=== PATIENT | male | born 1945 | race Caucasian/White ===

== ENCOUNTER 2018-10-12 14:04 | Emergency (ER) | payer MEDICARE, BC ==
[~2018-10-12] VITALS: Ht 177.8 cm; Wt 113.6 kg
[~2018-10-12 14:04] MED LIST: AMLO10TA4 PO; APIX2.5T PO; CELE-193 PO; HYDR12.5 PO; LISI-600 PO; PANT-47 PO; PRAM0.5T3 PO; PRAM3TAB PO; ROSU20TA PO; TEMA30CA5 PO; WALKERFR
[2018-10-12 14:16] VITALS: BP 160/88
== END 2018-10-12 19:19 | disposition left against medical advice (07) ==
LOC: ER 17:17
DX: R07.9 Chest pain, unspecified (principal); Z53.21 Procedure and treatment not carried out due to patient leaving prior to being seen by health care provider
CPT/HCPCS: 71045; 93005

== ENCOUNTER 2019-01-02 05:31 | Inpatient (IN) | payer MEDICARE, BC ==
[2018-12-22 12:23] LABS: BASOPHILS # (AUTO) 0.1 X10'3 (0-0.2); BASOPHILS % (AUTO) 0.6 % (0-1); EOSINOPHILS # (AUTO) 0.2 X10'3 (0-0.9); EOSINOPHILS % (AUTO) 2.4 % (0-6); LYMPHOCYTES % (AUTO) 10.7 % (21-51); MEAN CORPUSCULAR HEMOGLOBIN 32.2 PG (27.0-31.0); MEAN CORPUSCULAR HGB CONC 34.5 g/dL (33.0-36.5); MEAN CORPUSCULAR VOLUME 93.3 FL (78-98); MONOCYTES # (AUTO) 0.7 X10'3 (0-0.9); MONOCYTES % (AUTO) 7.6 % (2-12); NEUTROPHILS % (AUTO) 78.7 % (42-75); PRE OP HEMATOCRIT 45.7 % (42.0-52.0); PRE OP HEMOGLOBIN 15.8 g/dL (14.0-17.9); PRE OP PLATELET COUNT 213 X10'3 (140-440); RED CELL DISTRIBUTION WIDTH 15.3 % (11.5-14.5)
[2018-12-22 12:35] LABS: PRE OP INR 1.1 INR; PRE OP PROTIME 10.8 SECONDS (9.0-12.0)
[2018-12-22 12:41] LABS: ALBUMIN 3.8 G/DL (3.4-5.0); ALBUMIN/GLOBULIN RATIO 1.1 (1.1-1.5); ALKALINE PHOSPHATASE 61 IU/L (46-116); BLOOD UREA NITROGEN 20 MG/DL (7-18); BUN/CREATININE RATIO 22.2 (5.4-32.0); CALCIUM 9.4 MG/DL (8.5-10.1); CHLORIDE 107 MMOL/L (99-107); PRE OP ALT 28 U/L (30-65); PRE OP ANION GAP 8 (8-16); PRE OP AST 18 U/L (10-37); PRE OP BILIRUB, TOTAL 1.3 MG/DL (0.0-1.0); PRE OP GLUCOSE 85 MG/DL (70-104); PRE OP POTASSIUM 3.8 MMOL/L (3.4-5.1); PRE OP SODIUM 143 MMOL/L (135-145); TOTAL CARBON DIOXIDE 27.9 MMOL/L (24-32); TOTAL PROTEIN 7.2 G/DL (6.4-8.2); eGFR 83 ML/MIN
[2018-12-22 12:51] LABS: CLARITY,URINE CLEAR (Clear); COLOR,URINE YELLOW (Yellow); GLUCOSE, URINE NEGATIVE (Neg); KETONES,URINE NEGATIVE (Neg); LEUKOCYTE ESTERASE ,URINE NEGATIVE (Neg); NITRITES, URINE NEGATIVE (Neg); OCCULT BLOOD,URINE NEGATIVE (Neg); PH,URINE 5.5 (4.8-8.0); PROTEIN,URINE NEGATIVE (Neg)
[2018-12-22 12:52] LABS: UA COLLECTION TYPE CLN CATCH MIDSTREAM
[2019-01-02] VITALS (20 sets, daily range): BP systolic 108–142; BP diastolic 60–92
[~2019-01-02] VITALS: Ht 177.8 cm; Wt 113.9 kg
[~2019-01-02 05:31] MED LIST changes: -LISI-600 PO; +LISI10TA4 PO; -PANT-47 PO; -ROSU20TA PO; +ROSU20TA2 PO; -TEMA30CA5 PO; -WALKERFR; +acetaminophen 325mg tablet PO ONE; +cefazolin/dext.iso 2gm/100 ML IV ONE; +celeCOXIB 100mg capsule PO ONE; +famotidine 20mg tablet PO ONE; +gabapentin 300mg capsule PO ONE; +oxyCODONE SR 10mg (sust. release) tab PO ONE; +ringers solution, lacted 1,000 ML IV SCH; +tranexamic acid inj. 1,500 MG in normal saline 100ml IV soln 100 ML IV ONE
[2019-01-02] MEDS ORDERED: LIDOcaine 1% (10mg/ml) 2ml vial ONE (05:54)
[2019-01-02] MEDS ORDERED: ROPIVAcaine 0.5% (5mg/ml) 30ml vial ONE ×2 (06:51→07:11)
[2019-01-02] MEDS ORDERED: bacitracin inj 150,000 UNIT in sodium chloride irrig. sol 3,000 ML IR ONE (07:00)
[2019-01-02] MEDS ORDERED: tetracaine 1% (10mg/ml) pres. free inj. ONE (07:11)
[2019-01-02] MEDS ORDERED: morphine /PF 1mg/ml 10ml inj. ONE (07:14)
[2019-01-02] MEDS ORDERED: fentaNYL/PF 50MCG/1 ML 2ML syringe ONE (07:14)
[2019-01-02] MEDS ORDERED: MIDAZolam 1mg/ml 10ml vial ONE (07:14)
[2019-01-02] MEDS ORDERED: ringers solution, lacted 1,000 ML IV SCH (08:06)
[2019-01-02] MEDS ORDERED: hydrALAZINE 20mg/ml inj. IV PRN (08:10)
[2019-01-02] MEDS ORDERED: morphine 4 MG/ML inj SYRINge IV PRN ×2 (08:10)
[2019-01-02] MEDS ORDERED: ondansetron/PF 4mg/2ml inj IV PRN ×3 (08:10→10:45)
[2019-01-02] MEDS ORDERED: meperidine/PF 25mg/ml syringe IV PRN ×2 (08:10)
[2019-01-02] MEDS ORDERED: enalaprilat dihydrate 2.5mg/2ml vial IV PRN (08:10)
[2019-01-02] MEDS ORDERED: diphenhydrAMINE 50 mg/ml inj IV PRN (08:10)
[2019-01-02] MEDS ORDERED: ceFAZolin 1000mg inj ONE (08:55)
[2019-01-02] MEDS ORDERED: bisacodyl 10mg suppository rectal RC PRN (10:45)
[2019-01-02] MEDS ORDERED: magnesium hydroxide 30ml (MOM) UD suspension PO PRN (10:45)
[2019-01-02] MEDS ORDERED: HYDROmorphone 1 mg/ml syringe IV PRN (10:45)
[2019-01-02] MEDS ORDERED: diphenhydrAMINE 25mg capsule PO PRN ×2 (10:45)
[2019-01-02] MEDS ORDERED: acetaminophen 325mg tablet PO PRN (10:45)
--- NOTE | 2019-01-02 10:45 | NUR ---
Received from OR via bed, accompanied by Anesthesiologist. Report received. Initial physical assessment done and recorded.
--- NOTE | 2019-01-02 12:15 | NUR ---
Discharge criteria met, report to receiving floor. Transferred to room in stable condition.
[2019-01-02] MEDS: pramipexole 1mg tablet PO SCH ×3 (13:00→20:21)
[2019-01-02] MEDS: ceFAZolin 1GM/D5W- ADD-VANTAGE 50 ML IV SCH (17:21)
[2019-01-02] MEDS: gabapentin 300mg capsule PO SCH ×2 (17:21→20:19)
[2019-01-02] MEDS: potassium cl 20mEq in 1/2 NS 1,000 ML IV SCH ×2 (17:21→18:41)
--- NOTE | 2019-01-02 18:09 | NUR ---
report to Harriett MOTTA
--- NOTE | 2019-01-02 18:57 | NUR ---
PT REPORT RECEIVED FROM RODNEY MOTTA.
--- NOTE | 2019-01-02 19:56 | NUR ---
DRESSING REINFORCED, MODERATE BLEEDING. POWDER PACK REPLACED.
[2019-01-02] MEDS: sennosides 8.6mg tablet PO SCH (20:19)
[2019-01-02] MEDS: ascorbic acid 500mg tablet PO SCH (20:19)
[2019-01-03] MEDS: ceFAZolin 1GM/D5W- ADD-VANTAGE 50 ML IV SCH (00:01)
[2019-01-03] MEDS: oxyCODONE/APAP 10/325mg tablet PO PRN ×5 (00:04→19:42)
[2019-01-03 02:00] VITALS: BP 127/86
[2019-01-03] MEDS: potassium cl 20mEq in 1/2 NS 1,000 ML IV SCH ×3 (03:22→18:40)
[2019-01-03] MEDS ORDERED: albuterol 2.5 MG/3 ML nebule NEB PRN (05:50)
[2019-01-03 06:00] VITALS: BP_SYST 120; BP_SYST 128; BP_DIAS 78
--- NOTE | 2019-01-03 06:23 | NUR ---
Patient in room [facility]23. I have received report from ÁNGELA Ceja and had the opportunity to ask questions and assume patient care.
--- NOTE | 2019-01-03 06:27 | NUR ---
PT REPORT GIVEN TO ROSALVA MOTTA.
[2019-01-03 06:39] LABS: INR 1.2 INR
[2019-01-03 06:40] LABS: ANION GAP 7 (8-16); CHLORIDE 104 MMOL/L (99-107); POTASSIUM 4.5 MMOL/L (3.5-5.1); SODIUM 139 MMOL/L (135-145); TOTAL CARBON DIOXIDE 27.8 MMOL/L (24-32)
[2019-01-03] MEDS: atorvastatin 10mg tablet PO SCH (08:10)
[2019-01-03] MEDS: HYDROchlorothiazide 12.5mg capsule PO SCH (08:11)
[2019-01-03] MEDS: pramipexole 1mg tablet PO SCH ×4 (08:14→21:28)
[2019-01-03] MEDS: gabapentin 300mg capsule PO SCH ×3 (08:15→19:38)
[2019-01-03] MEDS: amLODIPine 5mg tablet PO SCH (08:16)
[2019-01-03] MEDS: multivitamins, therapeutics tablet PO SCH (08:18)
[2019-01-03] MEDS: ascorbic acid 500mg tablet PO SCH ×2 (08:19→19:37)
[2019-01-03] MEDS: lisinopril 10 MG tablet PO SCH (08:20)
[2019-01-03 08:52] LABS: BASOPHILS # (AUTO) 0.1 X10'3 (0-0.2); BASOPHILS % (AUTO) 0.8 % (0-1); EOSINOPHILS # (AUTO) 0.1 X10'3 (0-0.9); EOSINOPHILS % (AUTO) 0.9 % (0-6); HEMATOCRIT 41.8 % (42.0-52.0); HEMOGLOBIN 14.6 g/dl (14.0-17.9); LYMPHOCYTES % (AUTO) 12.9 % (21-51); MEAN CORPUSCULAR HEMOGLOBIN 32.7 PG (27.0-31.0); MEAN CORPUSCULAR HGB CONC 34.8 g/dL (33.0-36.5); MEAN PLATELET VOLUME 8.3 FL (7.4-10.4); MONOCYTES # (AUTO) 0.5 X10'3 (0-0.9); MONOCYTES % (AUTO) 6.2 % (2-12); NEUTROPHILS # (AUTO) 6.2 X10'3 (1.8-7.7); NEUTROPHILS % (AUTO) 79.2 % (42-75); PLATELET COUNT 231 X10'3 (140-440); RED BLOOD COUNT 4.45 X10'6 (4.70-6.10); RED CELL DISTRIBUTION WIDTH 14.8 % (11.5-14.5); WHITE BLOOD COUNT 7.9 X10'3 (4.5-11.0)
[2019-01-03 10:00] VITALS: BP 106/60
[2019-01-03] MEDS ORDERED: warfarin 10mg tablet PO ONE (10:00)
--- NOTE | 2019-01-03 11:58 | NUR ---
Assessment was completed at 0800 but time was not changed on physical assessment document to reflect this assessment
--- NOTE | 2019-01-03 12:08 | NUR ---
Problems reprioritized. Patient report given, questions answered & plan of care reviewed with ÁNGELA Ceja.
--- NOTE | 2019-01-03 12:15 | NUR ---
Student documentation:I have reviewed and agree with all interventions, assessments performed and documented by Deborah Morales. Student Medication Administration:For this medication-pass time frame [id number], all medications were reviewed, administered and documented per hospital policy by Deborah Morales.
[2019-01-03] MEDS: lactose-reduced food (Ensure Enlive) - 237ml bottle PO SCH ×2 (13:00→18:00)
--- NOTE | 2019-01-03 13:40 | NUR ---
Joint replacement consult: Pt seen by ARACELI for verbal high protein ed. RD reviewed high protein needs for wound healing, immune strength, high protein foods, and protein supplementation options. RD contact information provided in case of further questions. Pt agrees to ensure enlive VITALY; and dietary notified. Addendum: 01/03/19 at [address] Amended: Links added.
[2019-01-03 16:00] VITALS: BP 116/56
[2019-01-03 18:00] VITALS: BP 103/42
--- NOTE | 2019-01-03 18:37 | NUR ---
PT REPORT RECEIVED FROM RSOALVA MOTTA.
[2019-01-03] MEDS: celeCOXIB 100mg capsule PO SCH (19:37)
[2019-01-03] MEDS: sennosides 8.6mg tablet PO SCH (21:28)
[2019-01-03 22:00] VITALS: BP 148/82
[2019-01-04] MEDS: oxyCODONE/APAP 10/325mg tablet PO PRN ×3 (00:57→09:49)
[2019-01-04] MEDS: potassium cl 20mEq in 1/2 NS 1,000 ML IV SCH (02:41)
--- NOTE | 2019-01-04 04:30 | NUR ---
pt report to joselito rn.
[2019-01-04 06:10] LABS: BASOPHILS % (AUTO) 0.5 % (0-1); EOSINOPHILS # (AUTO) 0.3 X10'3 (0-0.9); EOSINOPHILS % (AUTO) 3.8 % (0-6); HEMATOCRIT 39.9 % (42.0-52.0); HEMOGLOBIN 13.8 g/dl (14.0-17.9); MEAN CORPUSCULAR HEMOGLOBIN 32.4 PG (27.0-31.0); MEAN CORPUSCULAR HGB CONC 34.5 g/dL (33.0-36.5); MEAN PLATELET VOLUME 8.2 FL (7.4-10.4); MONOCYTES # (AUTO) 0.5 X10'3 (0-0.9); MONOCYTES % (AUTO) 6.8 % (2-12); NEUTROPHILS # (AUTO) 5.6 X10'3 (1.8-7.7); NEUTROPHILS % (AUTO) 75.9 % (42-75); PLATELET COUNT 199 X10'3 (140-440); RED BLOOD COUNT 4.24 X10'6 (4.70-6.10); RED CELL DISTRIBUTION WIDTH 15.4 % (11.5-14.5); WHITE BLOOD COUNT 7.4 X10'3 (4.5-11.0)
[2019-01-04 06:22] LABS: INR 1.3 INR
--- NOTE | 2019-01-04 06:45 | NUR ---
Received report from Reshma RN
[2019-01-04 07:20] VITALS: BP 143/82
[2019-01-04] MEDS: lactose-reduced food (Ensure Enlive) - 237ml bottle PO SCH (08:00)
[2019-01-04] MEDS: ascorbic acid 500mg tablet PO SCH (08:09)
[2019-01-04] MEDS: atorvastatin 10mg tablet PO SCH (08:09)
[2019-01-04] MEDS: celeCOXIB 100mg capsule PO SCH (08:09)
[2019-01-04 08:10] VITALS: BP_SYST 127
[2019-01-04] MEDS: lisinopril 10 MG tablet PO SCH (08:10)
[2019-01-04] MEDS: multivitamins, therapeutics tablet PO SCH (08:11)
[2019-01-04] MEDS: gabapentin 300mg capsule PO SCH (08:11)
[2019-01-04] MEDS: HYDROchlorothiazide 12.5mg capsule PO SCH (08:11)
[2019-01-04] MEDS: amLODIPine 5mg tablet PO SCH (08:12)
[2019-01-04] MEDS: pramipexole 1mg tablet PO SCH (08:13)
[2019-01-04] MEDS ORDERED: warfarin 10mg tablet PO ONE (10:00)
--- NOTE | 2019-01-04 10:08 | NUR ---
Patient was discharged IV and tele was removed from patient. Patient was alert and oriented at time of discharge. patient left with .
[2019-01-04] MEDS ORDERED: acetaminophen 325mg tablet PO PRN (10:45)
== END 2019-01-04 10:02 | disposition home health service (06) | DRG 467 ==
LOC: PAS IN 05:31 → EDSTATUS 07:30 → ORTHO 4S 12:06
PROVIDERS: ADMIT Specialist; ATTEND Specialist
PROC: 0SRC0J9 Replacement of Right Knee Joint with Synthetic Substitute, Cemented, Open Approach (ICD-10-PCS; 2019-01-02)
PROC: 3E0T3BZ Introduction of Anesthetic Agent into Peripheral Nerves and Plexi, Percutaneous Approach (ICD-10-PCS; 2019-01-02)
PROC: 0SPC0JZ Removal of Synthetic Substitute from Right Knee Joint, Open Approach (ICD-10-PCS; principal; 2019-01-02 07:16)
DX: T84.032A Mechanical loosening of internal right knee prosthetic joint, initial encounter (principal); D62 Acute posthemorrhagic anemia; Y79.2 Prosthetic and other implants, materials and accessory orthopedic devices associated with adverse incidents; M65.861 Other synovitis and tenosynovitis, right lower leg; I48.91 Unspecified atrial fibrillation; E78.5 Hyperlipidemia, unspecified; G47.30 Sleep apnea, unspecified; I10 Essential (primary) hypertension; Z96.651 Presence of right artificial knee joint; K21.9 Gastro-esophageal reflux disease without esophagitis; Y92.89 Other specified places as the place of occurrence of the external cause
CPT/HCPCS: 36415; 73560; 80051; 80053; 81003; 82948; 85025; 85610; 85730; 87070; 97110; 97116; 97162; 97530; A6449; A6455; A7000; C1713; C1758; C1776; G0378; J0690; J2250; J2274; J2405; J2795; J3010; J3490; J7030; J7120